=== PATIENT | female | born 1935 | race Caucasian/White ===

== ENCOUNTER 2017-10-24 08:36 | Emergency (ER) | payer MEDICARE, BC ==
[~2017-10-24] VITALS: Ht 165.1 cm; Wt 64.6 kg
[~2017-10-24 08:36] MED LIST: ASPI81EC PO; ATOR40TA PO; CALMAGZIN PO; CRANBERRY PO; CYAN500 PO; ERGO400 PO; FISH1000 PO; HYDACE5325; JOINT FLEX PO; LISHYD2012 PO; LORA1 PO; MULVITMIND PO; NITROFURANTOIN 50 MG PO; TOCO400 PO; VERAPAMIL PO; Vagifem PO
[2017-10-24] MEDS ORDERED: Zestril30 MG PO (08:57)
[2017-10-24] MEDS ORDERED: HYDCHL25 PO (08:57)
[2017-10-24] MEDS ORDERED: ATOR20 PO (08:58)
[2017-10-24] MEDS ORDERED: Verapamil HCl240 M1 PO (08:59)
[2017-10-24 09:12] LABS: BASOPHILS ABSOLUTE AUTO 0.02 K/mm3 (0.00-0.23); BASOPHILS PERCENT AUTO 0 % (0-2); EOSINOPHILS ABSOLUTE AUTO 0.03 K/mm3 (0.00-0.68); EOSINOPHILS PERCENT AUTO 1 % (0-6); Hematocrit 40.5 % (33.0-51.0); Hemoglobin 12.9 g/dL (11.5-16.0); IMMATURE GRAN ABSOLUTE AUTO 0.02 K/mm3 (0.00-0.10); IMMATURE GRAN PERCENT AUTO 0 % (0-1); LYMPHOCYTES ABSOLUTE AUTO 1.19 K/mm3 (0.84-5.20); LYMPHOCYTES PERCENT AUTO 19 % (21-46); MONOCYTES ABSOLUTE AUTO 0.72 K/mm3 (0.16-1.47); MONOCYTES PERCENT AUTO 12 % (4-13); Mean Corpuscular HGB 31.1 pg (26.0-34.0); Mean Corpuscular HGB Conc 31.9 g/dL (31.5-36.5); Mean Corpuscular Volume 98 fL (80-100); Mean Platelet Volume 9.9 fL (9.1-12.4); NEUTROPHILS ABSOLUTE AUTO 4.15 K/mm3 (1.96-9.15); NEUTROPHILS PERCENT AUTO 68 % (41-73); Platelet Count 279 K/mm3 (150-400); RDW Coefficient Variation 13.8 % (11.7-14.2); RDW Standard Deviation 49.1 fL (35.1-46.3); Red Blood Cell Count 4.15 M/mm3 (3.80-5.20); White Blood Cell Count 6.13 K/mm3 (4.00-11.30)
[2017-10-24 09:15] LABS: Alanine Aminotransfer (ALT/SGP 18 U/L (12-78); Albumin, Blood 3.6 g/dL (3.4-5.0); Albumin/Globulin Ratio 1.1 (0.8-1.8); Alk Phos 60 U/L (50-136); Anion Gap 8 mmol/L (6-16); Aspartate Aminotrans (AST/SGOT 15 U/L (12-37); Bilirubin, Total 1.1 mg/dL (0.1-1.0); Blood Urea Nitrogen 17 mg/dL (8-24); CO2, Blood 28 mmol/L (21-32); Calcium, Blood 8.5 mg/dL (8.5-10.1); Chloride, Blood 100 mmol/L (98-108); Creatinine, Blood 0.66 mg/dL (0.40-1.00); Globulin, Blood 3.2 g/dL (2.2-4.0); Glomerular Filtration Rate >60 (60-); Glucose, Blood 105 mg/dL (70-99); Potassium, Blood 3.8 mmol/L (3.5-5.5); Sodium, Blood 136 mmol/L (136-145); Total Protein, Blood 6.8 g/dL (6.4-8.2); Troponin I <0.015 ng/mL (0.000-0.040)
[2017-10-24 11:05] LABS: Source, Urine Clean Catch
[2017-10-24] MEDS ORDERED: Macrobid 100 M100 MG PO (11:08)
[2017-10-24 11:19] LABS: Bilirubin, Urine Neg (Neg); Blood, Urine 2+ (Neg); Glucose Qualitative, Urine Neg (Neg); Ketones, Urine 1+ (Neg); Leukocyte Esterase, Urine 3+ (Neg); Nitrite, Urine Pos (Neg); Protein, Urine 1+ (Neg); Specific Gravity, Urine 1.015 (1.003-1.022); Urobilinogen, Urine NORM (Normal)
[2017-10-24 11:57] LABS: Appearance, Urine Cloudy (Clear); Color, Urine Yellow (P-Yellow)
[2017-10-24 11:58] LABS: Bacteria Many /hpf; Squamous Epithelial Cells Few /hpf (Few); White Blood Cells, Urine TNTC /hpf (0-5)
== END 2017-10-24 11:40 | disposition home or self-care (01) ==
LOC: ER 08:36
PROVIDERS: Emergency Medicine
DX: R55 Syncope and collapse (principal); N39.0 Urinary tract infection, site not specified; Z79.899 Other long term (current) drug therapy; I10 Essential (primary) hypertension; E78.00 Pure hypercholesterolemia, unspecified
CPT/HCPCS: 71046; 80053; 81001; 84484; 85025; 87077; 87086; 87186; 93005; 93010; 96360; 99284; J7030

== ENCOUNTER → 2017-10-30 | Outpatient (CLI) | payer MEDICARE, BC ==
[~2017-10-30] MED LIST changes: +ASPI81CH PO; +ATOR20 PO; +HYDCHL25 PO; +Hair, Skin & N1 EACH; +IBUP600 PO; +LISI20 PO; +Macrobid 100 M100 MG PO; +Robaxin500 MG PO; +Ultram50 MG PO; +VAGIFEM10 MCG VG; +Verapamil HCl240 M1 PO; +Zestril30 MG PO; +[UNRECOGNIZED DRUG - REMARK]
[2017-10-30 12:14] LABS: BASOPHILS ABSOLUTE AUTO 0.04 K/mm3 (0.00-0.23); BASOPHILS PERCENT AUTO 1 % (0-2); EOSINOPHILS ABSOLUTE AUTO 0.02 K/mm3 (0.00-0.68); EOSINOPHILS PERCENT AUTO 1 % (0-6); Hematocrit 40.3 % (33.0-51.0); Hemoglobin 12.8 g/dL (11.5-16.0); IMMATURE GRAN ABSOLUTE AUTO 0.02 K/mm3 (0.00-0.10); IMMATURE GRAN PERCENT AUTO 1 % (0-1); LYMPHOCYTES ABSOLUTE AUTO 0.91 K/mm3 (0.84-5.20); LYMPHOCYTES PERCENT AUTO 25 % (21-46); MONOCYTES ABSOLUTE AUTO 0.59 K/mm3 (0.16-1.47); MONOCYTES PERCENT AUTO 16 % (4-13); Mean Corpuscular HGB 30.3 pg (26.0-34.0); Mean Corpuscular HGB Conc 31.8 g/dL (31.5-36.5); Mean Corpuscular Volume 96 fL (80-100); Mean Platelet Volume 9.8 fL (9.1-12.4); NEUTROPHILS ABSOLUTE AUTO 2.13 K/mm3 (1.96-9.15); NEUTROPHILS PERCENT AUTO 58 % (41-73); Platelet Count 281 K/mm3 (150-400); RDW Coefficient Variation 13.2 % (11.7-14.2); RDW Standard Deviation 46.3 fL (35.1-46.3); Red Blood Cell Count 4.22 M/mm3 (3.80-5.20); White Blood Cell Count 3.71 K/mm3 (4.00-11.30)
[2017-10-30 12:27] LABS: Anion Gap 5 mmol/L (6-16); Blood Urea Nitrogen 11 mg/dL (8-24); Bun/Creatinine Ratio 21.8 (12.0-20.0); CO2, Blood 31 mmol/L (21-32); Calcium, Blood 8.9 mg/dL (8.5-10.1); Chloride, Blood 100 mmol/L (98-108); Creatinine, Blood 0.51 mg/dL (0.40-1.00); Glomerular Filtration Rate >60 (60-); Glucose, Blood 83 mg/dL (70-99); Potassium, Blood 4.1 mmol/L (3.5-5.5); Sodium, Blood 136 mmol/L (136-145)
[2017-10-30 12:54] LABS: Influenza A Negative (NEGATIVE); Influenza B Negative (NEGATIVE)
== END | disposition home or self-care (01) ==
LOC: LAB 11:58
PROVIDERS: Internal Medicine
DX: R53.81 Other malaise (principal); R53.83 Other fatigue
CPT/HCPCS: 80048; 85025; 87804

== ENCOUNTER 2018-02-27 08:00 | Emergency (ER) | payer MEDICARE, BC ==
[~2018-02-27] VITALS: Ht 165.1 cm; Wt 65.3 kg
[~2018-02-27 08:00] MED LIST changes: -ASPI81CH PO; -Hair, Skin & N1 EACH; -IBUP600 PO; -LISI20 PO; -Robaxin500 MG PO; -Ultram50 MG PO; -VAGIFEM10 MCG VG; -[UNRECOGNIZED DRUG - REMARK]
[2018-02-27] MEDS ORDERED: Hair, Skin & N1 EACH (08:12)
[2018-02-27] MEDS ORDERED: [UNRECOGNIZED DRUG - REMARK] (08:12)
[2018-02-27] MEDS ORDERED: IBUP600 PO (09:39)
[2018-02-27] MEDS ORDERED: Robaxin500 MG PO (09:39)
[2018-02-27] MEDS ORDERED: Ultram50 MG PO (09:39)
== END 2018-02-27 09:50 | disposition home or self-care (01) ==
LOC: ER 08:00
DX: S39.012A Strain of muscle, fascia and tendon of lower back, initial encounter (principal); X58.XXXA Exposure to other specified factors, initial encounter; Z79.899 Other long term (current) drug therapy; I10 Essential (primary) hypertension; E78.00 Pure hypercholesterolemia, unspecified
CPT/HCPCS: 72100; 99283

== ENCOUNTER 2018-03-23 14:09 | Emergency (ER) | payer MEDICARE, BC ==
[~2018-03-23] VITALS: Ht 165.1 cm; Wt 65.3 kg
[~2018-03-23 14:09] MED LIST changes: +Hair, Skin & N1 EACH; +IBUP600 PO; +Robaxin500 MG PO; +Ultram50 MG PO; +[UNRECOGNIZED DRUG - REMARK]
[2018-03-23] MEDS ORDERED: ASPI81CH PO (14:51)
[2018-03-23] MEDS ORDERED: LISI20 PO (14:51)
[2018-03-23] MEDS ORDERED: LORA1 PO (14:51)
[2018-03-23] MEDS ORDERED: VAGIFEM10 MCG VG (14:52)
[2018-03-23 15:01] LABS: BASOPHILS ABSOLUTE AUTO 0.04 K/mm3 (0.00-0.23); BASOPHILS PERCENT AUTO 1 % (0-2); EOSINOPHILS ABSOLUTE AUTO 0.05 K/mm3 (0.00-0.68); EOSINOPHILS PERCENT AUTO 1 % (0-6); Hematocrit 35.6 % (33.0-51.0); Hemoglobin 11.7 g/dL (11.5-16.0); IMMATURE GRAN ABSOLUTE AUTO 0.01 K/mm3 (0.00-0.10); IMMATURE GRAN PERCENT AUTO 0 % (0-1); LYMPHOCYTES ABSOLUTE AUTO 0.98 K/mm3 (0.84-5.20); LYMPHOCYTES PERCENT AUTO 19 % (21-46); MONOCYTES ABSOLUTE AUTO 0.75 K/mm3 (0.16-1.47); MONOCYTES PERCENT AUTO 14 % (4-13); Mean Corpuscular HGB 30.3 pg (26.0-34.0); Mean Corpuscular HGB Conc 32.9 g/dL (31.5-36.5); Mean Corpuscular Volume 92 fL (80-100); Mean Platelet Volume 9.2 fL (9.1-12.4); NEUTROPHILS ABSOLUTE AUTO 3.46 K/mm3 (1.96-9.15); NEUTROPHILS PERCENT AUTO 65 % (41-73); Platelet Count 260 K/mm3 (150-400); RDW Coefficient Variation 14.8 % (11.7-14.2); RDW Standard Deviation 49.9 fL (35.1-46.3); Red Blood Cell Count 3.86 M/mm3 (3.80-5.20); White Blood Cell Count 5.29 K/mm3 (4.00-11.30)
[2018-03-23 15:14] LABS: Alanine Aminotransfer (ALT/SGP 21 U/L (12-78); Albumin, Blood 3.4 g/dL (3.4-5.0); Alk Phos 81 U/L (50-136); Anion Gap 8 mmol/L (6-16); Aspartate Aminotrans (AST/SGOT 14 U/L (12-37); Bilirubin, Total 1.1 mg/dL (0.1-1.0); Blood Urea Nitrogen 10 mg/dL (8-24); Bun/Creatinine Ratio 18.7 (12.0-20.0); CO2, Blood 28 mmol/L (21-32); Calcium, Blood 8.8 mg/dL (8.5-10.1); Chloride, Blood 100 mmol/L (98-108); Creatinine, Blood 0.54 mg/dL (0.40-1.00); Globulin, Blood 3.3 g/dL (2.2-4.0); Glomerular Filtration Rate >60 (60-); Glucose, Blood 91 mg/dL (70-99); Potassium, Blood 3.7 mmol/L (3.5-5.5); Sodium, Blood 136 mmol/L (136-145); Total Protein, Blood 6.7 g/dL (6.4-8.2)
[2018-03-23] MEDS ORDERED: Ultram50 MG PO (16:00)
== END 2018-03-23 16:12 | disposition home or self-care (01) ==
LOC: ER 14:09
PROVIDERS: Emergency Medicine
DX: R10.32 Left lower quadrant pain (principal); I10 Essential (primary) hypertension; E78.00 Pure hypercholesterolemia, unspecified; Z79.82 Long term (current) use of aspirin; Z79.899 Other long term (current) drug therapy
CPT/HCPCS: 36415; 74176; 80053; 81000; 83690; 85025; 96374; 99284; J1885

== ENCOUNTER → 2019-08-25 | Outpatient (CLI) | payer MEDICARE, BC ==
[~2019-08-25] MED LIST changes: +ASPI81CH PO; +LISI20 PO; +VAGIFEM10 MCG VG
== END | disposition home or self-care (01) ==
LOC: LAB SHORT 08:13 → PLD 08:13
DX: D22.4 Melanocytic nevi of scalp and neck (principal); L81.8 Other specified disorders of pigmentation; L82.1 Other seborrheic keratosis; L81.4 Other melanin hyperpigmentation
CPT/HCPCS: 88305

== ENCOUNTER → 2020-05-04 | Outpatient (CLI) | payer MEDICARE, BC ==
[2020-05-04 19:52] LABS: BASOPHILS ABSOLUTE AUTO 0.05 K/mm3 (0.00-0.23); BASOPHILS PERCENT AUTO 1 % (0-2); EOSINOPHILS ABSOLUTE AUTO 0.08 K/mm3 (0.00-0.68); EOSINOPHILS PERCENT AUTO 2 % (0-6); Hematocrit 29.5 % (33.0-51.0); Hemoglobin 8.3 g/dL (11.5-16.0); IMMATURE GRAN ABSOLUTE AUTO 0.01 K/mm3 (0.00-0.10); IMMATURE GRAN PERCENT AUTO 0 % (0-1); LYMPHOCYTES ABSOLUTE AUTO 1.07 K/mm3 (0.84-5.20); LYMPHOCYTES PERCENT AUTO 20 % (21-46); MONOCYTES ABSOLUTE AUTO 0.69 K/mm3 (0.16-1.47); MONOCYTES PERCENT AUTO 13 % (4-13); Mean Corpuscular HGB Conc 28.1 g/dL (31.5-36.5); Mean Corpuscular Volume 78 fL (80-100); Mean Platelet Volume 9.9 fL (9.1-12.4); NEUTROPHILS ABSOLUTE AUTO 3.59 K/mm3 (1.96-9.15); NEUTROPHILS PERCENT AUTO 65 % (41-73); Platelet Count 366 K/mm3 (150-400); RDW Coefficient Variation 16.9 % (11.7-14.2); RDW Standard Deviation 48.2 fL (35.1-46.3); Red Blood Cell Count 3.78 M/mm3 (3.80-5.20); White Blood Cell Count 5.49 K/mm3 (4.00-11.30)
== END | disposition home or self-care (01) ==
LOC: LAB 11:55 → LAB SHORT 11:55
PROVIDERS: Physician Assistant
DX: D50.9 Iron deficiency anemia, unspecified (principal)
CPT/HCPCS: 85025

== ENCOUNTER → 2020-06-17 | Outpatient (CLI) | payer MEDICARE, BC ==
[2020-06-17 19:34] LABS: Osmolality, Urine 448 mos/kg (15-1400)
[2020-06-17 20:02] LABS: Sodium, Urine, Random 24 mmol/L (20-110)
== END | disposition home or self-care (01) ==
LOC: LAB SHORT 13:44 → LAB UCHC 13:44
PROVIDERS: Physician Assistant
DX: E87.1 Hypo-osmolality and hyponatremia (principal)
CPT/HCPCS: 83935; 84300

== ENCOUNTER 2020-08-04 10:28 | Day surgery (SDC) | payer MEDICARE, BC ==
[~2020-08-04] VITALS: Ht 160 cm; Wt 59.6 kg
[~2020-08-04 10:28] MED LIST changes: +Cranberry300 MG PO; +DILTIAZEM 24HR240 M4 PO; +FISH OIL 1,2001 EAC7 PO; +PROLIA60 MG/1 ML SQ; +TUMS500 MG PO; +Vitamin D2000 UNIT PO
== END 2020-08-04 11:51 | disposition home or self-care (01) ==
LOC: ORSCSDS 10:28
PROVIDERS: Anesthesiology
PROC: 3E0R33Z Introduction of Anti-inflammatory into Spinal Canal, Percutaneous Approach (ICD-10-PCS; principal; 2020-08-04 11:45)
DX: M54.16 Radiculopathy, lumbar region (principal); I10 Essential (primary) hypertension; E78.00 Pure hypercholesterolemia, unspecified; I27.20 Pulmonary hypertension, unspecified; Z79.82 Long term (current) use of aspirin; Z79.899 Other long term (current) drug therapy
CPT/HCPCS: J1040; J2001

== ENCOUNTER → 2021-04-15 | Outpatient (CLI) | payer MEDICARE, BC ==
[2021-04-15 16:49] LABS: Sodium, Urine, Random 63 mmol/L (20-110)
[2021-04-15 17:23] LABS: Osmolality, Urine 444 mos/kg (15-1400)
== END | disposition home or self-care (01) ==
LOC: LAB SHORT 09:00 → LAB 09:00
PROVIDERS: Physician Assistant
DX: E87.1 Hypo-osmolality and hyponatremia (principal)
CPT/HCPCS: 83935; 84300

== ENCOUNTER → 2021-06-01 | Outpatient (CLI) | payer MEDICARE, BC ==
[2021-06-01 20:26] LABS: Sodium, Urine, Random 57 mmol/L (20-110)
[2021-06-01 20:58] LABS: Osmolality, Urine 341 mos/kg (15-1400)
== END | disposition home or self-care (01) ==
LOC: LAB SHORT 19:25 → LAB 19:25 → LAB FUT 05-31 13:20
PROVIDERS: Physician Assistant
DX: E87.1 Hypo-osmolality and hyponatremia (principal)
CPT/HCPCS: 83935; 84300

== ENCOUNTER → 2021-07-18 | Outpatient (CLI) | payer MEDICARE, BC ==
[~2021-07-18] MED LIST changes: +ACET500 PO; +VITAMIN E ACETATE PO
== END | disposition home or self-care (01) ==
LOC: LAB SHORT 15:53
DX: D22.5 Melanocytic nevi of trunk (principal)
CPT/HCPCS: 88305

== ENCOUNTER 2021-07-20 06:39 | Day surgery (SDC) | payer MEDICARE, BC ==
[~2021-07-20] VITALS: Ht 165.1 cm; Wt 61.0 kg
--- NOTE | 2021-07-20 09:37 | NUR ---
PT REPOSITIONED FOR COMFORT. HOB RAISED TO 45 DEGREES FOR PT TO EAT BREAKFAST. PREVIOUSLY USED BEDPAN, VOIDED 300 CC CLEAR URINE. PT DAUGHTER UPDATED ON PLAN FOR DISCHARGE. EDUCATED PT VERBALLY REGARDING DISCHARGE INSTRUCTION RELATED TO RIGHT LEG MOBILITY RESTRICTIONS. PT STATES UNDERSTANDING. PROVIDED WITH WARM BLANKETS AND TELEVISION FOR ENTERTAINMENT. CALL LIGHT IN REACH.
--- NOTE | 2021-07-20 11:00 | NUR ---
PT OUT OF BED, AMBULATES SLOWLY WITH CANE, STEADILY. RIGHT GROIN SITE REMAINS SOFT WITH NO SIGNS OF BLEEDING. DRESSING STILL INTACT. PT DENIES PAIN. USES RESTROOM, UNMEASURED VOID. GETS DRESSED WITH NO NEEDED ASSISTANCE.
--- NOTE | 2021-07-20 11:30 | NUR ---
PROVIDED WITH LUNCH, TOLERATES WITH NO DIFFICULTIES. PT SITTING UP IN CHAIR. NO COMPLAINTS AT THIS TIME. AWAITING ARRIVAL OF DAUGHTER TO DRIVE PT HOME.
--- NOTE | 2021-07-20 12:06 | NUR ---
PT VERBALIZED UNDERSTANDING OF D/C INSTRUCTIONS, PAPERWORK PROVIDED IN FOLDER. IV REMOVED WITH CATH INTACT, PRESSURE DRESSING APPLIED. RIGHT GROIN SITE APPEARS TO BE SOFT NON TENDER WITH NO ACTIVE BLEEDING, OOZING, OR PAIN. BLE PEDAL PULSES +1DP/PT. PT TAKEN TO PRIVATE VEHICLE VIA W/C. NADN AT TIME OF DISCHARGE. ENCOURAGED TO FOLLOW UP AFTER TAVR PROCEDURE.
== END 2021-07-20 12:59 | disposition home or self-care (01) ==
LOC: MHTC 06:39
DX: I08.0 Rheumatic disorders of both mitral and aortic valves (principal); I25.10 Atherosclerotic heart disease of native coronary artery without angina pectoris; E78.00 Pure hypercholesterolemia, unspecified; I10 Essential (primary) hypertension; Q21.1 Atrial septal defect
CPT/HCPCS: 76937; 93454; 99152; 99153; C1760; C1769; C1894; J1644; J2250; J3010; J7030; J7050; Q9967

== ENCOUNTER → 2022-09-26 | Outpatient (CLI) | payer MEDICARE, BC ==
[2022-09-26 18:27] LABS: Percent Saturation 15.1 % (15.0-50.0)
== END | disposition home or self-care (01) ==
LOC: LAB SHORT 12:30 → LAB 12:30
PROVIDERS: Internal Medicine Hematology & Oncology
DX: D50.0 Iron deficiency anemia secondary to blood loss (chronic) (principal); R77.8 Other specified abnormalities of plasma proteins
CPT/HCPCS: 82728; 83540; 83550

== ENCOUNTER → 2022-11-02 | Outpatient (CLI) | payer MEDICARE, BC ==
[2022-11-02 20:36] LABS: Albumin, Blood 3.9 g/dL (3.4-5.0); Albumin/Globulin Ratio 1.5 (0.8-1.8); Bilirubin, Total 0.7 mg/dL (0.1-1.0); Creatinine, Blood 0.58 mg/dL (0.40-1.00); Globulin, Blood 2.6 g/dL (2.2-4.0); Phosphorus, Blood 3.5 mg/dL (2.5-4.9); Total Protein, Blood 6.5 g/dL (6.4-8.2)
== END | disposition home or self-care (01) ==
LOC: LAB SHORT 11:40 → LAB 11:40
PROVIDERS: Internal Medicine Hematology & Oncology
DX: I10 Essential (primary) hypertension (principal)
CPT/HCPCS: 80053; 84100